=== PATIENT | female | born 1940 | race Caucasian/White ===

== ENCOUNTER 2023-04-04 07:52 | Emergency (ER) | payer MEDICARE, SELFPAY ==
--- NOTE | ~2023-04-04 | US_ITS ---
US venous doppler [facility] DATE: 04/04/2023 08:41 INDICATION: Swelling TECHNIQUE: Real-time and color flow imaging and Doppler analysis of the veins of the left lower extre mity COMPARISON: None FINDINGS: There is spontaneous and phasic flow and normal augmentation and color flow signal and norm al compression of the deep veins of the left lower extremity. IMPRESSION: No evidence of deep venous thrombosis of left lower extremity Reviewed, dictated and finalized at [facility]. Reviewed, dictated and finalized at [facility].
[2023-04-04 08:00] VITALS: BP 128/74; PULSE 85; RESP 16; TEMP 36.6; O2SAT 99
[2023-04-04 08:29] LABS: Basophils Percent Auto 0.4 % (0.2-1.2); Eosinophils Absolute Auto 0.1 K/mm3 (0-0.3); Eosinophils Percent Auto 2.3 % (0-4.4); Hematocrit 30.8 % (37.0-47.0); Hemoglobin 10.2 g/dL (12.0-15.0); Immature Granulocyte Absolute 0.03 K/mm3 (0.00-0.031); Immature Granulocyte Percent A 0.5 % (0-0.5); Lymphocytes Absolute Auto 1.52 K/mm3 (0.9-3.2); Mean Corpuscular HGB Conc 33.1 g/dl (32-36); Mean Corpuscular Hemoglobin 35.2 pg (26-34); Mean Corpuscular Volume 106.2 fl (80-100); Mean Platelet Volume 8.8 fl (7.4-10.4); Monocytes Absolute Auto 0.5 K/mm3 (0.1-0.6); Monocytes Percent Auto 8.2 % (2.6-8.5); Neutrophils Absolute Auto 3.5 K/mm3 (1.3-6.7); Neutrophils Percent Auto 61.6 % (45.5-73.1); Platelet Count Result 239 k/mm3 (150-375); Red Cell Distribution Width 11.7 % (11.5-14.5); White Blood Count 5.6 K/mm3 (4.5-10.0)
[2023-04-04 08:44] LABS: Anion Gap 4 mmol/L (8-16); Blood Urea Nitrogen 11 mg/dL (7-17); Calcium 8.6 mg/dL (8.4-10.2); Carbon Dioxide 31 mmol/L (22-30); Chloride 104 mmol/L (98-107); Estimated CRCL calculation 54 ml/min; Estimated Glomerular Filt Rate > 60; Glucose 111 mg/dL (65-110); INR 1.1; Partial Thromboplastin Time 26.8 SECONDS (22.3-36.8); Potassium 3.8 mmol/L (3.4-5.0); Prothrombin Time 14.3 Seconds (11.1-14.7); Sodium 139 mmol/L (137-145)
--- NOTE | 2023-04-04 09:21 | ED.GENADULT ---
HPI - General Adult General Chief complaint: Extremity Problem,Nontraumatic Stated complaint: Blood clot Time Seen by Provider: 04/04/23 07:59 History of Present Illness HPI narrative: Patient is an 82-year-old female who presents ER with left leg swelling. Noticed it last night. She had a hip replacement at [facility] 8 days ago. She went to the ER last night but there was too long of a wait and they could not perform ultrasound. She thus decided to come here this morning. No chest pain or shortness of breath. No pain in the leg or calf. She has been up and ambulatory. History of DVT or PE. She is without any chest pain or shortness of breath. No additional concerns. Related Data Home Medications Medication Instructions Recorded Confirmed irbesartan 150 mg tablet mg 04/04/23 04/04/23 simvastatin 40 mg tablet mg 04/04/23 Allergies Allergy/AdvReac Type Severity Reaction Status Date / Time No Known Allergies Allergy Verified 04/04/23 08:11 Review of Systems Review of Systems: All systems reviewed & are unremarkable except as noted in HPI and below Constitutional: Constitutional: Denies chills and Denies fever(s) Cardiovascular: Cardiovascular: Denies chest pain, Denies rapid heart rate and Denies radiating jaw, neck or arm pain Respiratory: Respiratory: Denies cough and Denies dyspnea Gastrointestinal: Gastrointestinal: Denies abdominal pain, Denies nausea and Denies vomiting Musculoskeletal: Musculoskeletal: Denies arthralgias and Denies joint swelling Comments: Leg swelling left side Exam Narrative: GENERAL: Well-appearing, well-nourished, and in no acute distress. HEAD: Normocephalic, atraumatic. CHEST: Clear to auscultation. No respiratory distress. HEART: Regular rate and rhythm. Normal peripheral pulses. ABDOMEN: Soft, nontender, nondistended. EXTREMITIES: Normal range of motion. 2+ edema left lower extremity when compared to the right. Negative Homans' sign. SKIN: Warm, dry, no rash. NEURO: Alert and oriented x3. PSYCH: Normal mood and affect. Course Course Emergency Course: Patient resting comfortably. Informed of results. No evidence of DVT. Discharge home. Vital Signs Vital signs: Vital Signs Temperature 97.8 F 04/04/23 08:00 Pulse Rate 85 04/04/23 08:00 Respiratory Rate 16 04/04/23 08:00 Blood Pressure 128/74 04/04/23 08:00 Pulse Oximetry 99 04/04/23 08:00 Oxygen Delivery Room Air 04/04/23 08:00 Temperature 97.8 F 04/04/23 08:00 Pulse Rate 85 04/04/23 08:00 Respiratory Rate 16 04/04/23 08:00 Blood Pressure 128/74 04/04/23 08:00 Pulse Oximetry 99 04/04/23 08:00 Oxygen Delivery Room Air 04/04/23 08:00 Medical Decision Making Vital Signs Vital Signs: Vital Signs Temperature 97.8 F 04/04/23 08:00 Pulse Rate 85 04/04/23 08:00 Respiratory Rate 16 04/04/23 08:00 Blood Pressure 128/74 04/04/23 08:00 Pulse Oximetry 99 04/04/23 08:00 Oxygen Delivery Room Air 04/04/23 08:00 Temperature 97.8 F 04/04/23 08:00 Pulse Rate 85 04/04/23 08:00 Respiratory Rate 16 04/04/23 08:00 Blood Pressure 128/74 04/04/23 08:00 Pulse Oximetry 99 04/04/23 08:00 Oxygen Delivery Room Air 04/04/23 08:00 Lab Data 04/04/23 08:24 04/04/23 08:24 Labs: Lab Results 04/04/23 Range/Units 08:24 WBC 5.6 (4.5-10.0) K/mm3 RBC 2.90 L (4.2-5.4) M/mm3 Hgb 10.2 L (12.0-15.0) g/dL Hct 30.8 L (37.0-47.0) % MCV 106.2 H (80-100) fl MCH 35.2 H (26-34) pg MCHC 33.1 (32-36) g/dl RDW 11.7 (11.5-14.5) % Plt Count 239 (150-375) k/mm3 MPV 8.8 (7.4-10.4) fl Immature Gran % (Auto) 0.5 (0-0.5) % Neut % (Auto) 61.6 (45.5-73.1) % Lymph % (Auto) 27.0 (18.3-44.2) % [place] % (Auto) 8.2 (2.6-8.5) % Eos % (Auto) 2.3 (0-4.4) % Baso % (Auto) 0.4 (0.2-1.2) % Lymph # (Auto) 1.52 (0.9-3.2) K/mm3 [place] # (Auto) 0.5 (0.1-0.6) K/mm3 Eos # (Auto)
== END 2023-04-04 10:00 | disposition home or self-care (01) ==
LOC: ANHED 09:31
PROVIDERS: Emergency Provider Emergency Medicine
DX: R60.0 Localized edema (principal); Z96.642 Presence of left artificial hip joint
CPT/HCPCS: 36415; 80048; 85025; 85610; 85730; 93971; 99284